=== PATIENT | female | born 1995 | race Caucasian/White ===

== ENCOUNTER 2017-01-16 09:20 | Day surgery (SDC) | payer OTHER ==
[2017-01-13 14:33] VITALS: Ht 154.9 cm; Wt 59.0 kg
[2017-01-16] VITALS (12 sets, daily range): BP systolic 92–127; BP diastolic 42–95; PULSE 62–72; RESP 14–23
[~2017-01-16] VITALS: Ht 154.9 cm; Wt 59.0 kg
[~2017-01-16 09:20] MED LIST: BALANCED SALT SOLN 15 ML OPH IRRIG ONE; PREN1TAB49 PO
[2017-01-16] MEDS ORDERED: TIMO5DRO21 OP (10:00)
--- NOTE | 2017-01-16 10:02 | HPN ---
Date/Time of Note Date/Time of Note DATE: 01/16/17 TIME: 10:02 Interval H&P Admission Note Pt. seen H&P reviewed: No system changes JEFFREY KAUR MD Jan 16, 2017 10:02
[2017-01-16] MEDS ORDERED: TOBRAMYCIN/DEXAMETH 3.5 GM OPH OINT ONE (11:17)
[2017-01-16] MEDS ORDERED: METHYLENE BLUE 1% 10 ML INJ ONE (11:18)
[2017-01-16] MEDS ORDERED: FENTAnyl 50 MCG/ML VIAL ONE (11:39)
[2017-01-16] MEDS ORDERED: PHENYLephrine 10% 5 ML OPH RIGHT EYE ONE (11:54)
[2017-01-16] MEDS ORDERED: ROCURONIUM 50 MG INJ ONE (11:57)
[2017-01-16] MEDS ORDERED: SUCCINYLCHOLINE CHLORIDE 100 MG/5 ML SYG IV ONE (11:57)
[2017-01-16] MEDS ORDERED: LIDOCAINE 2% (SDV) 5 ML INJ ONE (11:57)
[2017-01-16] MEDS ORDERED: SUGAMMADEX SODIUM 200 MG/2 ML VIAL IV ONE (11:57)
[2017-01-16] MEDS ORDERED: PROPOFOL 20 ML ONE (11:57)
[2017-01-16] MEDS ORDERED: METOCLOPRAMIDE 10 MG INJ IV PRN (12:30)
[2017-01-16] MEDS ORDERED: DIPHENHYDRAMINE 50 MG INJ IV PRN (12:30)
[2017-01-16] MEDS ORDERED: ONDANSETRON 4 MG INJ IV PRN (12:30)
[2017-01-16] MEDS ORDERED: FENTAnyl 50 MCG/ML VIAL IV PRN ×2 (12:30)
[2017-01-16] MEDS ORDERED: HYDROmorphONE (0.2 MG/ML) 10ML SYG IV PRN ×2 (12:30)
[2017-01-16] MEDS ORDERED: MEPERIDINE 25 MG INJ IV PRN (12:30)
[2017-01-16] MEDS ORDERED: TOBRAMYCIN/DEXAMETH 3.5 GM OPH OINT RIGHT EYE ONE (12:35)
--- NOTE | 2017-01-21 16:56 | OPR ---
DATE OF OPERATION: 01/16/2017 PREOPERATIVE DIAGNOSIS: Esotropia, right eye. POSTOPERATIVE DIAGNOSIS: Esotropia, right eye. OPERATION PERFORMED: Five mm recession of right medial rectus muscle. OPERATIVE PROCEDURE: Following standard preparation and draping of the patient, a speculum was placed for immobilization of the lids. A peritomy was performed from the 2 to 4 o'clock position and carried posteriorly to the insertion of the medial rectus muscle. Tenon capsule was buttonholed, following which a muscle hook was placed beneath the insertion of the muscle. The anterior segment of the muscle was cleaned of Tenon's capsule, following which a 6-0 Vicryl suture was interwoven at its insertion over the muscle and locked both superiorly and inferiorly. The muscle was now disinserted from its attachment to the globe and reinserted 5.0 mm posterior to the original insertion. The peritomy was repositioned with multiple 8-0 Vicryl sutures. The eye was flooded with 5 percent Betadine solution, following which Tobradex ointment was placed in the eye. A light pressure dressing was placed and the patient returned to the recovery room in satisfactory condition. Dictated By: Alessia Lopez MD /[email or web address] /Document#: [id number]
== END 2017-01-16 14:30 | disposition home or self-care (01) ==
LOC: SDS 09:20
PROVIDERS: ATTEND Ophthalmology
DX: H50.00 Unspecified esotropia (principal)
CPT/HCPCS: 67311; 84703; J1170; J2405; J3010; J7999; Z7512; Z7610